=== PATIENT | male | born 1995 | race Caucasian/White ===

== ENCOUNTER 2020-03-10 01:23 | Emergency (ER) | payer MEDICAID ==
[~2020-03-10] VITALS: Ht 182.9 cm; Wt 108.4 kg
[2020-03-10 02:03] LABS: ABSOLUTE BASOPHILS 0.1 thou/uL (0.0-0.2); ABSOLUTE EOSINOPHILS 0.4 thou/uL (0.0-0.7); ABSOLUTE LYMPHOCYTES 3.3 thou/uL (0.8-5.3); ABSOLUTE MONOCYTES 0.9 thou/uL (0.0-1.2); BASOPHILS 0.9 %; EOSINOPHILS 2.8 %; HEMATOCRIT 44.7 % (42.0-52.0); HEMOGLOBIN 15.2 gm/dL (14.0-18.0); LYMPHOCYTES 26.2 %; MCH 29.2 pg (26.0-34.0); MONOCYTES 7.1 %; MPV 8.4 fl. (7.2-11.1); NUCLEATED RBCS 0 /100WBC; PLATELET COUNT* 318 thou/uL (150-400); RBC 5.19 mil/uL (4.50-6.00); RDW-CV 13.2 % (10.5-14.5); WBC 12.7 thou/uL (4.0-11.0)
[2020-03-10 02:07] LABS: CALCIUM 9.2 mg/dL (8.5-10.1); CREATININE 1.5 mg/dL (0.6-1.3); POTASSIUM 3.7 mmol/L (3.5-5.1)
[2020-03-10 02:12] LABS: ALBUMIN 4.1 g/dL (3.4-5.0); TOTAL BILIRUBIN 0.5 mg/dL (<0.1-1.0); TOTAL PROTEIN 7.8 g/dL (6.4-8.2)
[2020-03-10 02:16] LABS: AMP/METHAMP Negative (Negative); BARBITURATES Negative (Negative); BENZODIAZEPINES Negative (Negative); COCAINE Negative (Negative); METHADONE Negative (Negative); OPIATES Negative (Negative); PCP Negative (Negative); THC Negative (Negative)
[2020-03-10 02:20] LABS: URINE BILIRUBIN NEGATIVE (Negative); URINE BLOOD TRACE (Negative); URINE CLARITY CLEAR; URINE COLOR YELLOW; URINE GLUCOSE-RANDOM NEGATIVE (Negative); URINE KETONES NEGATIVE (Negative); URINE LEUKOCYTES-REFLEX NEGATIVE (Negative); URINE NITRITE-REFLEX NEGATIVE (Negative); URINE PROTEIN NEGATIVE (Negative); URINE UROBILINOGEN 0.2 E.U./dl (0.2-1.0)
[2020-03-10 02:23] LABS: SALICYLATE < 2.8 mg/dL (2.8-20.0)
[2020-03-10 02:25] LABS: ACETAMINOPHEN < 2 ug/mL (10-30); ALCOHOL < 10 mg/dL (<10)
[2020-03-10 03:45] VITALS: BP 147/83
== END 2020-03-10 03:50 | disposition home or self-care (01) ==
LOC: M.ERS 01:23
PROVIDERS: Emergency Medicine
DX: R45.851 Suicidal ideations (principal)